=== PATIENT | female | born 1950 | race Two or more races ===

== ENCOUNTER 2022-12-10 12:44 | Outpatient (AMB) | payer OTHER, SELFPAY ==
--- NOTE | 2022-12-10 12:51 | A.OFFVIS_ITS ---
Intake Vital Signs 12/10/22 12:55 Height 5 ft 2 in Weight 196 lb 4 oz BMI 35.9 BP 140/90 H Blood Pressure Location Rt brachial Position Sitting Pulse 80 Pulse Source Pulse Oximeter Pulse Oximetry (%) 99 Oxygen Delivery Method Room Air Intake Visit Reasons: NPV-TREMOR UPPER EXTREMITY - Confirmed Intake Note: Pt presents today for tremors on extremities . Pt states its an ongoing x 8 years c no change , Pt states she sees a corporate operations compliance manager for vein thickening of the heart. Not on any meds . Pt saw Dr Betancur in 2019 Allergies amitriptyline Allergy (Unknown, Verified 12/10/22 12:58) Unknown ciprofloxacin Allergy (Unknown, Verified 12/10/22 12:58) Unknown lisinopril Allergy (Unknown, Verified 12/10/22 12:58) Unknown metoprolol Allergy (Unknown, Verified 12/10/22 12:58) Unknown morphine Allergy (Unknown, Verified 12/10/22 12:58) Unknown pentosan polysulfate sodium [From Elmiron] Allergy (Unknown, Verified 12/10/22 12:58) Unknown promethazine Allergy (Unknown, Verified 12/10/22 12:58) Unknown carbidopa Adverse Reaction (Intermediate, Verified 12/10/22 13:24) Nausea and Vomiting primidone Adverse Reaction (Intermediate, Verified 12/10/22 13:19) Nausea and Vomiting HPI HPI Comments History of Present Illness Details 72y/o female for further management of tremors. She started noticing tremors in her fredi upper extremities about 8 years ago . Her brother( 56), sister ( 59)and 1 grand son( 22) have tremors as well.The tremors are worse on the left. It is mostly with action , posture and sometimes at rest. she denies any voice or head tremors. She has mild difficulty with drinking liquids and writing. Other keith the tremors does not affect her ADLs.she has noticed any progression of her tremors she denies any memory issues.No drooling, no change in speech. she has difficulty dressing due to her arthritis. No difficulty using utensils. she was seen by Dr. Romero who tried on sinemet and primidone . she did not react well so stopped both.she had tachycardia and had to stop. [facility] Medical History (Updated 12/10/22 @ 13:46 by Carmen Hooper MD) Allergic rhinitis Anemia Asthma Benign essential tremor Breast cancer Depression Diverticulitis Esophageal reflux Fibromyalgia Fibromyalgia Hemorrhoids History of benign essential tremor HTN (hypertension) Neuropathy Osteoarthritis Renal colic Sinusitis Venous insufficiency Surgical History H/O lumpectomy Family History Mother Stroke Diabetes CHF (congestive heart failure) HTN (hypertension) Father MVA (motor vehicle accident) Sister Muscle tremor Brother Muscle tremor Social History Alcohol intake: never Patient Tobacco Use Status: Never used Tobacco Review of Systems Const Denies weight gain Musc Denies back pain and Denies arthralgias Neuro Reports tremor(s) Physical Exam Vital Signs: Last Vital Signs Pulse 80 12/10/22 12:55 BP 140/90 H 12/10/22 12:55 Pulse Ox 99 12/10/22 12:55 Oxygen Delivery Method Room Air 12/10/22 12:55 BMI result Body Mass Index 35.9 Const General: cooperative, healthy appearing, comfortable and no acute distress Nutritional Appearance: obese Orientation/consciousness: patient oriented x3 Eyes Pupils: Equal, round and reactive pupils present Neuro Other: Good voice Good facial expression and blink Intermittent left UE rest tremors Fredi UE mild postural and action tremors FFM and foot taps normal No cog wheel rigidity she was able to copy the archimedes spiral -both left and right Handwriting normal General: patient oriented x3, tone normal, moves all extremities and no focal motor deficits Cranial nerves: Yes Equal, round and reactive pupils present, Yes Bilaterally intact EOM present, Yes Normal facial strength present, Yes Midline tongue present, Yes Symmetric palate elevation present and Yes Ability to bilaterally elevate shoulders present Cognition (Neuro): normal cognition Gait exam (Neuro): Antalgic gait present Motor exam (neuro): 5/5 motor strength present throughout and Normal motor muscle tone present throughout Deep tendon reflexes (DTR's): Right triceps reflex intensity grade: 1+, Left triceps reflex intensity grade: 1+, Rt Biceps (C5, C6): 1+, Left biceps reflex intensity grade: 1+, Right brachioradialis reflex intensity grade: 1+, Left brachioradialis reflex intensity grade: 1+, Right patellar reflex intensity grade: 1+ and Left patellar reflex intensity grade: 1+ Coordination: [id number] test normal Psych Appearance: grossly normal Speech and movement: Normal speech and movement present Affect: normal affect Assessment & Plan Assessment & Plan (1) Benign essential tremor: Comment: Likely familial No evidence of Parkinsons disease Code(s): G25.0 - Essential tremor Plan No evidence of parkinsons disease Her tremors does not affect her ADLs significantly I discussed various treatment options ( she did not react well to primidone or sinemet in the past) , she declines medications for now I will follow her up clinically in 6 months Coding Level of Care Code New Pt Level 4 (20142) Diagnoses Benign essential tremor G25.0
[2022-12-10 12:55] VITALS: BP 140/90; PULSE 80; O2SAT 99; BMI 35.9
== END 2022-12-10 13:41 | disposition home or self-care (01) ==
PROVIDERS: Visit Provider Psychiatry & Neurology Neurology
DX: G25.0 Essential tremor (principal)
CPT/HCPCS: 99204

== ENCOUNTER → 2022-12-10 12:44 | Outpatient (BNVA) | payer OTHER, SELFPAY | PROVIDERS: Visit Provider Psychiatry & Neurology Neurology | DX: G25.0 Essential tremor (principal) | CPT/HCPCS: 99202 ==

== ENCOUNTER 2023-07-03 10:21 | Outpatient (AMB) | payer OTHER, SELFPAY ==
--- NOTE | 2023-07-03 10:27 | A.OFFVIS_ITS ---
Intake Vital Signs 07/03/23 10:28 Height 5 ft 2 in Weight 192 lb BMI 35.1 BP 158/90 H Blood Pressure Location Lt brachial Position Sitting Respiration 17 Pulse 86 Pulse Source Pulse Oximeter Pulse Oximetry (%) 95 Oxygen Delivery Method Room Air Intake Visit Reasons: 6MTREMOR UPPER EXTREMITY-CONF Intake Note: Pt presents for a 6 month follow up for tremors. Floor Renovator Required: No Allergies amitriptyline Allergy (Unknown, Verified 07/03/23 10:28) Unknown ciprofloxacin Allergy (Unknown, Verified 07/03/23 10:28) Unknown lisinopril Allergy (Unknown, Verified 07/03/23 10:28) Unknown metoprolol Allergy (Unknown, Verified 07/03/23 10:28) Unknown morphine Allergy (Unknown, Verified 07/03/23 10:28) Unknown pentosan polysulfate sodium [From Elmiron] Allergy (Unknown, Verified 07/03/23 10:28) Unknown promethazine Allergy (Unknown, Verified 07/03/23 10:28) Unknown carbidopa Adverse Reaction (Intermediate, Verified 07/03/23 10:28) Nausea and Vomiting primidone Adverse Reaction (Intermediate, Verified 07/03/23 10:28) Nausea and Vomiting HPI HPI Comments History of Present Illness Details 73y/o female for follow up of tremors.she denies any worsening. She started noticing tremors in her fredi upper extremities about 8 years ago . Her brother( 56), sister ( 59)and 1 grand son( 22) have tremors as well.The tremors are worse on the left. It is mostly with action , posture and sometimes at rest. she denies any voice or head tremors. She has mild difficulty with drinking liquids and writing. Other keith the tremors does not affect her ADLs.she has noticed any progression of her tremors she denies any memory issues.No drooling, no change in speech. she has difficulty dressing due to her arthritis. No difficulty using utensils. she was seen by Dr. Romero who tried on sinemet and primidone . she did not react well so stopped both.she had tachycardia and had to stop. [facility] Medical History Benign essential tremor Depression Fibromyalgia Fibromyalgia Osteoarthritis Anemia Neuropathy Esophageal reflux Venous insufficiency Renal colic Sinusitis HTN (hypertension) History of benign essential tremor Asthma Hemorrhoids Allergic rhinitis Diverticulitis Breast cancer Surgical History H/O lumpectomy Family History Mother Stroke Diabetes CHF (congestive heart failure) HTN (hypertension) Father MVA (motor vehicle accident) Sister Muscle tremor Brother Muscle tremor Social History Alcohol intake: never Patient Tobacco Use Status: Never used Tobacco Physical Exam Vital Signs: Last Vital Signs Pulse 86 07/03/23 10:28 Resp 17 07/03/23 10:28 BP 158/90 H 07/03/23 10:28 Pulse Ox 95 07/03/23 10:28 Oxygen Delivery Method Room Air 07/03/23 10:28 BMI result Body Mass Index 35.1 Const General: cooperative, healthy appearing, comfortable and no acute distress Nutritional Appearance: obese Orientation/consciousness: patient oriented x3 Eyes Pupils: Equal, round and reactive pupils present Neuro Other: Good voice Good facial expression and blink Intermittent left UE rest tremors Fredi UE mild postural and action tremors FFM and foot taps normal No cog wheel rigidity she was able to copy the archimedes spiral -both left and right Handwriting normal General: patient oriented x3, tone normal, moves all extremities and no focal motor deficits Cranial nerves: Yes Equal, round and reactive pupils present, Yes Bilaterally intact EOM present, Yes Normal facial strength present, Yes Midline tongue present, Yes Symmetric palate elevation present and Yes Ability to bilaterally elevate shoulders present Gait exam (Neuro): Antalgic gait present Coordination: [id number] test normal Psych Appearance: grossly normal Speech and movement: Normal speech and movement present Affect: normal affect Assessment & Plan Assessment & Plan (1) Benign essential tremor: Comment: Likely familial No evidence of Parkinsons disease Code(s): G25.0 - Essential tremor Plan No evidence of parkinsons disease Her tremors does not affect her ADLs significantly I discussed various treatment options ( she did not react well to primidone or sinemet in the past) , she declines medications for now I will follow her up clinically in 1 year Coding Level of Care Code Est Pt Level 4 (98391) Diagnoses Benign essential tremor G25.0
[2023-07-03 10:28] VITALS: BP 158/90; PULSE 86; RESP 17; O2SAT 95; BMI 35.1
== END 2023-07-03 10:45 | disposition home or self-care (01) ==
PROVIDERS: PCP Internal Medicine; Visit Provider Psychiatry & Neurology Neurology
DX: G25.0 Essential tremor (principal)
CPT/HCPCS: 99214

== ENCOUNTER → 2023-07-03 10:21 | Outpatient (BNVA) | payer OTHER, SELFPAY | PROVIDERS: PCP Internal Medicine; Visit Provider Psychiatry & Neurology Neurology | DX: G25.0 Essential tremor (principal) | CPT/HCPCS: 99212 ==

== ENCOUNTER 2024-07-01 10:45 | Outpatient (AMB) | payer OTHER, SELFPAY ==
--- NOTE | 2024-07-01 10:47 | MHC.OFFVIS ---
Vital Signs 07/01/24 10:48 Height 5 ft 2 in Weight 191 lb BMI 34.9 BP 140/78 H Blood Pressure Location Rt brachial Position Sitting Pulse 88 Pulse Source Pulse Oximeter Pulse Oximetry (%) 98 Oxygen Delivery Method Room Air Intake Visit Reasons: 1 yr F/U Intake Note: Patient presents for 1 year follow up essential tremors Employment Evaluator/Case Manager Required: Yes Employment Evaluator/Case Manager Services: Employment Evaluator/Case Manager Present Employment Evaluator/Case Manager Name: Yani Oconnell Information Interpreted: non-clinical & clinical Allergies amitriptyline Allergy (Unknown, Verified 07/01/24 10:50) Unknown ciprofloxacin Allergy (Unknown, Verified 07/01/24 10:50) Unknown lisinopril Allergy (Unknown, Verified 07/01/24 10:50) Unknown metoprolol Allergy (Unknown, Verified 07/01/24 10:50) Unknown morphine Allergy (Unknown, Verified 07/01/24 10:50) Unknown pentosan polysulfate sodium [From Elmiron] Allergy (Unknown, Verified 07/01/24 10:50) Unknown promethazine Allergy (Unknown, Verified 07/01/24 10:50) Unknown carbidopa Adverse Reaction (Intermediate, Verified 07/01/24 10:50) Nausea and Vomiting primidone Adverse Reaction (Intermediate, Verified 07/01/24 10:50) Nausea and Vomiting HPI Comments Details: 74y/o female for follow up of tremors.she denies any worsening. No change form last visit . She started noticing tremors in her fredi upper extremities about 8 years ago . Her brother( 56), sister ( 59)and 1 grand son( 22) have tremors as well.The tremors are worse on the left. It is mostly with action , posture and sometimes at rest. she denies any voice or head tremors. She has mild difficulty with drinking liquids and writing. Other keith the tremors does not affect her ADLs.she has noticed any progression of her tremors she denies any memory issues.No drooling, no change in speech. she has difficulty dressing due to her arthritis. No difficulty using utensils. she was seen by Dr. Romero who tried on sinemet and primidone . she did not react well so stopped both.she had tachycardia and had to stop. [facility] Medical History Benign essential tremor Depression Fibromyalgia Fibromyalgia Osteoarthritis Anemia Neuropathy Esophageal reflux Venous insufficiency Renal colic Sinusitis HTN (hypertension) History of benign essential tremor Asthma Hemorrhoids Allergic rhinitis Diverticulitis Breast cancer Surgical History H/O lumpectomy Family History Mother Stroke Diabetes CHF (congestive heart failure) HTN (hypertension) Father MVA (motor vehicle accident) Sister Muscle tremor Brother Muscle tremor Social History Alcohol intake: never Patient Tobacco Use Status: Never used Tobacco Physical Exam Vital Signs: Last Vital Signs Pulse 88 07/01/24 10:48 BP 140/78 H 07/01/24 10:48 Pulse Ox 98 07/01/24 10:48 Oxygen Delivery Method Room Air 07/01/24 10:48 BMI result Body Mass Index 34.9 Const General: cooperative, healthy appearing, comfortable and no acute distress Nutritional Appearance: obese Orientation/consciousness: patient oriented x3 Eyes Pupils: Equal, round and reactive pupils present Neuro Other: Good voice Good facial expression and blink Intermittent left UE rest tremors Fredi UE mild postural and action tremors FFM and foot taps normal No cog wheel rigidity she was able to copy the archimedes spiral -both left and right Handwriting normal General: patient oriented x3, tone normal, moves all extremities and no focal motor deficits Cranial nerves: Yes Equal, round and reactive pupils present, Yes Bilaterally intact EOM present, Yes Normal facial strength present, Yes Midline tongue present, Yes Symmetric palate elevation present and Yes Ability to bilaterally elevate shoulders present Gait exam (Neuro): Antalgic gait present Coordination: [id number] test normal Psych Appearance: grossly normal Speech and movement: Normal speech and movement present Affect: normal affect Assessment & Plan Assessment & Plan (1) Benign essential tremor: Comment: Likely familial No evidence of Parkinsons disease Code(s): G25.0 - Essential tremor Category: Medical Plan No evidence of parkinsons disease Her tremors does not affect her ADLs significantly I discussed various treatment options ( she did not react well to primidone or sinemet in the past) , she declines medications for now I will follow her up clinically in 1 year Coding Level of Care Code Est Pt Level 4 (77968) Diagnoses Benign essential tremor G25.0
[2024-07-01 10:48] VITALS: BP 140/78; PULSE 88; O2SAT 98; BMI 34.9
--- OUTSIDE RECORDS SUMMARY | 2024-07-01 12:46 | XMS_ITS | Encounter Summary ---
Author Organization [facility] Address [id number] [place] [phone] Care Team Providers Care Merchandise Worker Name Role Phone Bell Barone MD Primary Care Provider [phone] Encounter Details Date Type Department Care Team (Late st Contact Info) Description 05/10/2024 Telephone Internal Medicine - [place] [address] [place] [phone] Bell Barone MD [address] [facility] [address] [place] [address] Social History Tobacco Use Types Packs/Day Years Used Date Smoking Tobacco: Never Smokeless Tobacco: Never Alcohol Use Standard Drinks/Week Comments Never 0 (1 standard drink = 0.6 oz pur e alcohol) Comments Unknown Sex and Gender Information Value Date Recorded Sex Assigned at Female 04/07/2024 10:53 AM EST Legal Sex Female 5:08 AM EST Gender Identity Female 04/07/2024 10:53 AM EST Sexual Orientation Straight 04/09/2024 9: 55 AM EST documented as of this encounter Plan of Treatment Upcoming Encounters Date Type Department Care Team (Late st Contact Info) Description 07/27/2024 11:00 AM EDT Ancillary Procedure [facility] [address] [place] [phone] 08/04/2024 10:50 AM EDT Office Visit [facility] - [facility] [place] [address] [place] [address] Marck Cox MD [address] [place] [address] [address] [place] [address] 10/28/2024 11:15 AM EDT Office Visit Internal Medicine - [place] [address] [facility] [address] [facility] [address] [place] [phone] Bell Barone MD [address] [facility] [address] [place] [phone] documented as of this encounter Visit Diagnoses Not on filedocumented in this encounter Care Teams Merchandise Worker Relationship Specialty Start Date End Date Bell Barone MD [address] [facility] [address] [place] [phone] PCP - General Internal Medicine 03/29/24 documented as of this encounter
--- OUTSIDE RECORDS SUMMARY | 2024-07-01 12:47 | XMS_ITS | Encounter Summary ---
Author Organization [facility] Address [address] [place] [phone] Care Team Providers Care Watershed Coordinator Name Role Phone Bell Barone MD Primary Care Provider [phone] Reason for Visit * Reason Onset Date Comments Lizabeth: Faxed form 05/24/2024 Encounter Details Date Type Department Care Team (Late st Contact Info) Description 05/24/2024 Telephone Internal Medicine - [place] [address] [address] [facility] [address] [place] [phone] Bell Barone MD [address] [place] [phone] [place]: Faxed form Social History Tobacco Use Types Packs/Day Years [...] AM EST documented as of this encounter Progress Notes * Eusebia Danielle [place] - 06/02/2024 1:15 PM EST Order was received, signed and faxed. Patient is all set. * Christine Gatica - 05/28/2024 3:46 PM EST [facility] called again about message below and would like to know the status of thisform. Please advise * Christine Gavi - 05/24/2024 12:56 PM EST [facility] called and stated that they sent over a prescription over for post surgeryblock that needs be signed by the provider and was sent on 05/07/24 and 05/14/24 and still have not received a response. Please advise Cb# [phone] documented in this encounter Plan of Treatment Upcoming Encounters Date Type Department Care Team (Late st Contact Info) Description 07/27/2024 11:00 AM EDT Ancillary Procedure [facility] [address] [facility] [address] [place] [phone] 08/04/2024 10:50 AM EDT Office Visit [facility] [address] [place] [address] [address] [place] [address] Marck Cox MD [address] [place] [address] [address] [place] [address] 10/28/2024 11:15 AM EDT Office Visit Internal Medicine - [place] [address] [place] [phone] Bell Barone MD [address] [facility] [address] [place] [phone] documented as of this encounter Visit Diagnoses Not on filedocumented in this encounter Care Teams Watershed Coordinator Relationship Specialty Start Date End Date Bell Barone MD [address] [facility] [address] [place] [phone] PCP - General Internal Medicine 03/29/24 documented as of this encounter
--- OUTSIDE RECORDS SUMMARY | 2024-07-01 12:47 | XMS_ITS | Clinical Summary ---
Author Organization [facility] Address [address] [place] [address] Phone Care Team Providers Care Oil Burner Repairer Name Role Phone Bell Barone MD Primary Care Provider [phone] Allergies Active Allergy Reactions Criticality Noted Date Comments Amitriptyline 08/25/2014 Amoxicillin-Pot Clavulanate 03/05/20 23 Azithromycin 08/25/2023 Chlorhexidin-Isopropyl Alcohol 08/24 Ciprofloxacin 11/23/2010 Lisinopril 11/23/2010 Metoprolol 02/10/2015 Mirabegron 08/25/2023 Morphine 11/23/2010 Other 09/18/2020 Seasonal allergies Amoxicillin-k Clavulanate-saccharin Pentosan Polysulfate Sodium 02/11/20 15 Phenazopyridine 08/25/2023 Promethazine 11/23/2010 Simethicone 08/25/2023 Sulfamethoxazole-Trimethoprim 2023 Medications UNABLE TO FIND Misc. Devices (Rollator Ultra-Light) Misc, 1 Each by Does not apply route daily. 03/03/20 24 Active carboxymethylc ellulose (REFRESH PLUS) 0.5 % ophthalmic solution 1 drop each eye twice a day 12/31/19 24 Active triamcinolone (KENALOG) 0.1 % cream APPLY TO AFFECTED AREA TWICE DAILY 02/12/20 24 Active lidocaine 5 % cream Apply 1 Inch topically 2 times daily. 12/29/19 24 Active simethicone (MYLICON) 125 mg chewable tablet Take 1 Tablet by mouth every 6 hours as needed for Flatulence. 08/28/19 24 Active hydrocortisone (ANUSOL-HC) 2.5 % rectal cream Apply 1 Dose topically 2 times daily. 07/07/19 24 Active loratadine (CLARITIN) 10 mg tablet Take 1 Tablet by mouth daily as needed for Allergies. 09/21/19 23 Active albuterol HFA (PROAIR HFA ; PROVENTIL HFA ; VENTOLIN HFA) 90 mcg/actuation inhaler INHALE 2 PUFFS INTO THE LUNGS EVERY 6 HOURS NEEDED FOR COUGH OR WHEEZING. 09/13/19 23 Active calcium carbonate-kelly min D3 600 mg-5 mcg (200 unit) per tablet Take 1 Cap by mouth daily. Active UNABLE TO FIND Spacer/Aero-H olding Chambers (PROCARE SPACER/ADULT MASK) Device 10/27/19 20 Active UNABLE TO FIND Misc. Devices (3-IN-1 BEDSIDE TOILET) Misc, 1 Each by Does not apply route daily. 04/14/20 18 Active benzonatate (TESSALON) 200 mg capsule Take 1 capsule (200 mg total) by mouth 3 (three) times a day if needed for cough. Do not crush or chew. 21 capsule 06/15/19 25 Active ergocalciferol (VITAMIN D-2) 1,250 mcg (50,000 unit) capsule TAKE 1 CAPSULE BY MOUTH ONCE A WEEK. 4 capsule 3 06/16/19 25 Active ergocalciferol (VITAMIN D-2) 1,250 mcg (50,000 unit) capsule TAKE 1 CAPSULE BY MOUTH ONCE A WEEK. 11/18/19 24 025 Discontinued(Re order) dextromethorph an-guaiFENesin (Tussin DM) 10-100 mg/5 mL liquidIndicati ons:Acute cough Take 5 mL by mouth every 4 (four) hours if needed for cough. 420 mL 2 05/12/19 25 025 Discontinued(Ex pired) ergocalciferol (VITAMIN D-2) 1,250 mcg (50,000 unit) capsule Take 1 capsule (50,000 Units total) by mouth 1 (one) time per week. 12 capsule 1 06/15/19 25 025 Discontinued Active Problems Problem Noted Date Diagnosed Date Parkinson's disease 06/15/2024 Assessment & Plan (06/15/2024 11:54 AM EST): Abdominal pain 03/09/2024 AV block 09/25/2023 Overview (03/09/2024): Last Assessment & Plan: The patient was found to have episodes of type I second-degree AV block on a recent Holter monitor. She also had a 3-second pause at 4 AM. The pause was likely secondary to increased vagal tone during sleep. Follow-up 8-day ambulatory automotive paint technician also showed a few episodes of type I secondary AV block. There was no evidence of any significant pauses during the ambulatory automotive paint technician. No evidence of any high- grade AV block or pauses longer than 3 seconds in any of her EKG monitors. The patient denies any symptoms of dizziness, presyncope, or syncope. As such, no indication for pacemaker placement at this point. The patient will contact our office if she has any symptoms of dizziness, near-syncope, or syncope. Aneurysm of ascending aorta 04/14/2023 Overview (03/09/2024): Last Assessment & Plan: The patient underwent an echocardiogram in June 2023. She was found to have a mild dilation of the ascending aorta at 3.9 cm. The patient will need a follow- up echocardiogram in 1 year for reevaluation of her ascending aorta diameter. I discussed this with the patient during today's visit. Assessment & Plan (04/13/2024 4:56 PM EST): The patient was noted to have a mild ascending aorta dilation on the echocardiogram done in 2023 and 2021. Will order a follow-up echocardiogram to be done in early 2024 for reevaluation of her mild ascending aorta dilation. Palpitation 04/09/2023 Overview (03/09/2024): Last Assessment & Plan: The patient has been experiencing episodes of palpitations. We will order a Holter monitor to evaluate for any underlying arrhythmias as a cause of her symptoms. We will also order an echocardiogram to rule out any significant structural heart disease. Assessment & Plan (04/13/2024 4:56 PM EST): The patient has been noticing symptoms of palpitations. Her episodes of palpitations are last for a few seconds per episode. She also has been noticing symptoms of a mild lightheadedness sensation. She denies any near-syncope or syncope. Previous Holter monitor from May 2023 showed a normal sinus rhythm with for severe AV block, right bundle branch block, occasional episodes of type I secondary AV block, and a 3-second pause during the sleep time hours. After that, a prolonged ambulatory automotive paint technician was prescribed but the patient was unable to wear the monitor for 8 days. During those 8 days, there was no evidence of any significant pauses or significant bradycardia. Nonetheless, given her current symptoms of palpitations and occasional symptoms of lightheadedness, we will proceed with a reevaluation with a 48-hour Holter monitor. Will also order laboratory testing that would include a CBC, CMP, and a TSH level. Tremor 08/26/2022 Allergic rhinitis 01/28/2018 Hemorrhoids 12/26/2017 Asthma 08/11/2017 Assessment & Plan (06/15/2024 11:54 AM EST): Benign familial tremor 08/08/2017 Chronic sinusitis 02/21/2017 Renal colic 02/21/2017 Venous insufficiency 02/21/2017 Esophageal reflux 11/13/2016 Neuropathic pain 08/23/2016 Vitamin D deficiency 02/05/2016 Anemia 10/18/2015 Migraine headache 10/18/2015 Assessment & Plan (06/15/2024 11:54 AM EST): OA (osteoarthritis of spine) 10/18/2015 Osteoarthritis of knee 09/04/2015 Fibromyalgia 11/01/2014 Decreased vision 09/08/2014 Depression 09/08/2014 Assessment & Plan (06/15/2024 11:54 AM EST): Overactive bladder 09/08/2014 Encounters Date Type Department Care Team Description 06/15/2024 8:45 AM EST Office Visit Internal Medicine - [address] [place] [address] Bell Barone MD Migraine without status migrainosus, not intractable, unspecified migraine type (Primary Dx); Encounter for subsequent annual wellness visit (AWV) in Medicare patient; Parkinson's disease, unspecified whether dyskinesia present, unspecified whether manifestations fluctuate (CMS/HCC); Mild intermittent asthma without complication; Depression, unspecified depression type 05/24/2024 Telephone Internal Medicine - [address] [facility] [address] [place] [address] Bell Barone MD [place]: Faxed form 05/12/2024 2:15 PM EST Office Visit Internal Medicine - [address] [address] [facility] [address] [place] [address] Juanpablo Bennett NP Chronic maxillary sinusitis (Primary Dx); Acute cough; Immunization due 05/10/2024 Telephone Internal Medicine - [place] [address] [facility] [address] [place] [address] Bell Barone MD 04/21/2024 Telephone [facility] [address] [place] [address] Toribio Carlos MD holter monitor results 04/13/2024 4:00 PM EST Office Visit [address] [place] [address] Toribio Carlos MD Ascending aortic aneurysm, unspecified whether ruptured (CMS/HCC) (Primary Dx); Palpitation 04/13/2024 2:30 PM EST Ancillary Procedure [facility] [address] [place] [phone] Palpitation 04/07/2024 10:54 AM EST - 04/07/2024 11:59 PM EST Hospital Encounter [facility] [address] [place] [phone] of the abdomen Discharge Disposition: Home or Self Care from Last 3 Months Immunizations Name Administration Dates Next Due Influenza trivalent, 0.5mL (Fluad) 65yo and olde r 01/14/2019 Pneumococcal conjugate 13 va lent (Prevnar 13, PCV13) 2mo and older 05/07/2016,03/13/2015 Pneumococcal conjugate 20 va lent (Prevnar 20, PCV 20) 2mo and older 05/12/2024 Surgical History Surgery Date Site/Laterality Comments BREAST LUMPECTOMY Right PROCEDURE: HISTORICAL BREAST LUMPECTOMY Medical History Medical History Date Comments Allergic rhinitis 01/28/2018 DX:Allergic rh initis Anemia 10/18/2015 DX:Anemia Asthma 08/11/2017 DX:Asthma Benign familial tremor 08/08/2017 DX:Benign familial tremor Chronic sinusitis 02/21/2017 DX:Chronic sin usitis Decreased vision 09/08/2014 DX:Decreased vi radha Depression 09/08/2014 DX:Depression Edema 11/27/2016 DX:Edema Esophageal reflux 11/13/2016 DX:Esophageal reflux Fibromyalgia 11/01/2014 DX:Fibromyalgia Hemorrhoids 12/26/2017 DX:Hemorrhoids History of breast cancer 03/03/2018 DX:Hist ory of breast cancer; COMMENT: Right lumpectomy, XRT, Tamoxifen/Arimidex for 5 yrs History of diverticulitis 03/03/2018 DX:His tory of diverticulitis HTN (hypertension) 05/28/2017 DX:HTN (hyper tension) Leg edema 11/13/2016 DX:Leg edema Migraine headache 10/18/2015 DX:Migraine he adache Neuropathic pain 08/23/2016 DX:Neuropathic pain OA (osteoarthritis of spine) 10/18/2015 DX: OA (osteoarthritis of spine) Osteoarthritis of knee 09/04/2015 DX:Osteoa rthritis of knee Overactive bladder 09/08/2014 DX:Overactive bladder Renal colic 02/21/2017 DX:Renal colic Venous insufficiency 02/21/2017 DX:Venous i nsufficiency Vitamin D deficiency 02/05/2016 DX:Vitamin D deficiency Abdominal pain DX:Abdominal graciela n Family History Medical History Relation Name Comments Breast cancer Aunt maternal Other: muscle tremor Brother Other: MVA accident Father Breast cancer Father's side 1st cousin Stroke Mother multiple CVA's and [place]; HTN; diabetes; CHF Other: muscle tremor Sister Relation Name Status Comments Aunt maternal Brother Alive Father Father's side 1st cousin Alive Maternal Grandfather Maternal Grandmother Mother Paternal Grandfather Paternal Grandmother Sister Alive Social History Tobacco Use Types Packs/Day Years [...] Orientation Straight 04/09/2024 9: 55 AM EST Obstetrics History Last Filed Vital Signs Vital Sign Reading Time Taken Comments Blood Pressure 138/86 06/15/2024 9:00 AM EST Pulse 88 06/15/2024 9:00 AM EST Temperature 36.7 ??C (98 ??F) 06/15/2024 9:00 AM EST Respiratory Rate - - Oxygen Saturation 99% 06/15/2024 9:00 AM EST Inhaled Oxygen Concentration - - Weight 83.5 kg (184 lb) 06/15/2024 9:00 AM EST Height 157.5 cm (5' 2 ) 05/12/2024 2:16 PM EST Body Mass Index 33.65 05/12/2024 2:16 PM EST Plan of Treatment Upcoming Encounters Date Type Department Care Team (Late st Contact Info) Description 07/27/2024 11:00 AM EDT Ancillary Procedure [facility] [address] [place] [phone] 08/04/2024 10:50 AM EDT Office Visit [facility] [address] [place] [address] Toribio Carlos MD [address] [place] [address] [address] [place] [address] 10/28/2024 11:15 AM EDT Office Visit Internal Medicine - [place] [address] [place] [phone] Bell Barone MD [address] [place] [phone] Health Maintenance Due Date Last Done Comments DTaP,Tdap,and Td Vaccines (1 - Tdap) 1970 Zoster Vaccines (1 of 2) 1970 RSV Immunization Patients 60+ Years Old (1 - Risk 60-74 years 1-dose series) 2011 Colorectal Cancer Screening: Colonoscopy 04/13/2022 Hepatitis C Screening 04/13/2022 Osteoporosis Screening (Bone Density Screening) 04/13/2022 Social Influencers of Health Screening 04/13/2022 COVID-19 Vaccine ( season) 2024 05/16/2021, 07/01/2020, 06/10/2020 Influenza Vaccine (#1) 2024 , 02/04/2022, 01/14/2019, Additional history exists Hypertension/CHF/CAD Annual BMP Blood Test 04/16/2025 04/16/2024, 12/29/2023, 12/29/2023 Depression Screening 06/15/2025 06/15/2024 Falls Risk Assessment 06/15/2025 06/15/2024 Medicare Annual Wellness Visit 06/15/2025 06/15/2024 Breast Cancer Screening 11/30/2025 12/01/19 24, 10/23/2022, 10/17/2021, Additional history exists Cholesterol Screening (Lipid Panel) 12/28/2028 12/29/2023, 12/29/2023 Pneumococcal Vaccine: 50+ Years Completed 05/12/2024, 05/07/2016, 03/13/2015, Additional history exists HIB Vaccines Aged Out No longer eligi ble based on patient's age to complete this topic HPV Vaccines Aged Out No longer eligi ble based on patient's age to complete this topic Hepatitis A Vaccines Aged Out No long er eligible based on patient's age to complete this topic Hepatitis B Vaccines Aged Out No long er eligible based on patient's age to complete this topic IPV Vaccines Aged Out No longer eligi ble based on patient's age to complete this topic MMR Vaccines Aged Out No longer eligi ble based on patient's age to complete this topic Meningococcal ACWY Vaccine Aged Out N o longer eligible based on patient's age to complete this topic Meningococcal B Vacine Aged Out No lo nger eligible based on patient's age to complete this topic RSV Immunization Patients Under 20 months Aged Out No longer eligible based on patient's age to complete this topic Varicella Vaccines Aged Out No longer eligible based on patient's age to complete this topic Procedures Procedure Name Priority Date/Time Associated Diagnosis Comments POC RAPID STREP A Routine 05/12/2024 3:3 8 PM EST Chronic maxillary sinusitis Acute cough POC INFLUENZA A/B Routine 05/12/2024 3:3 7 PM EST Chronic maxillary sinusitis Acute cough POC RAPID [id number], MOLECULAR Routine 05/12/2024 3:36 PM EST Chronic maxillary sinusitis Acute cough CBC WITH AUTO DIFFERENTIAL Routine 04/16/2024 11:10 AM EST Palpitation CBC AND DIFFERENTIAL Routine 04/16/2024 11:10 AM EST Palpitation COMPREHENSIVE METABOLIC PANEL Routine 04/16/2024 11:10 AM EST Palpitation THYROID STIMULATING HORMONE Routine 04/16/2024 11:10 AM EST Palpitation CARDIAC HOLTER MONITOR (REPORT GENERATED IN HOUSE) Routine 04/14/2024 1:44 PM EST Palpitation ECG 12-LEAD Routine 04/13/2024 4:11 PM EST Ascending aortic aneurysm, unspecified whether ruptured (CMS/HCC) Palpitation XR CHEST 2 VIEWS Routine 04/07/2024 11:[address] of the abdomen LIPID PANEL Routine 12/29/2023 TOM SCREENING DIGITAL Routine 12/01/2023 1:49 PM EDT Encounter for screening mammogram for malignant neoplasm of breast from Last 3 Months or Most Recently Relevant to Health Maintenance Results * POC rapid strep A manually resulted (05/12/2024 3:38 PM EST) Rapid Strep A Screen POC Negative Negative Internal Control Pass Yes Yes Swab Structure of anterior portion of neck / Unknown 05/12/2024 3:38 PM EST Juanpablo Bennett COMMERCIAL COORDINATOR POINT OF CARE TEST ENTER/EDIT OR DERABLES Final Result * POC Influenza A/B manually resulted (05/12/2024 3:37 PM EST) [facility] Rapid Influenza A AGN POC Negative Negative Rapid Influenza B AGN POC Negative Negative Internal Control Pass Yes Yes Swab 05/12/2024 3:37 PM EST Juanpablo Bennett COMMERCIAL COORDINATOR POINT OF CARE TEST ENTER/EDIT OR DERABLES Final Result * Poc Rapid [id number], MOLECULAR (05/12/2024 3:36 PM EST) [facility] COVID-19/SARS- COV-2 Rapid POC Negative Negative [facility]) Internal Control Pass Yes Yes [facility]) Swab Nasopharyngeal structure / Unknown 05/12/2024 3:36 PM EST Juanpablo Bennett COMMERCIAL COORDINATOR POINT OF CARE TEST ENTER/EDIT OR DERABLES Final Result Performing Organization Address City/State/[facility] Co de Phone Number [facility] * (ABNORMAL) CBC auto differential (04/16/2024 11:10 AM EST) [facility] WBC 5.9 4.8 - 10.8 K/mcL LAB HEMETOLOGY METHOD 04/16/2024 2:03 PM [facility] RBC 4.50 3.80 - 4.80 M/mcL LAB HEMETOLOGY METHOD 04/16/2024 2:03 PM [facility] Hemoglobin 12.4 11.5 - 16.0 g/dL LAB HEMETOLOGY METHOD 04/16/2024 2:03 PM [facility] Hematocrit 39.7 35.0 - 47.0 % LAB HEMETOLOGY METHOD 04/16/2024 2:03 PM [facility] MCV 87.6 79.0 - 98.0 FL LAB HEMETOLOGY METHOD 04/16/2024 2:03 PM [facility] MCH 27.4 27.0 - 32.0 pcg LAB HEMETOLOGY METHOD 04/16/2024 2:03 PM [facility] MCHC 31.2(L) 32.0 - 37.0 g/dL LAB HEMETOLOGY METHOD 04/16/2024 2:03 PM [facility] RDW 14.1 11.0 - 15.0 % LAB HEMETOLOGY METHOD 04/16/2024 2:03 PM [facility] Platelets 247 130 - 400 K/mcL LAB HEMETOLOGY METHOD 04/16/2024 2:03 PM [facility] MPV 11.4(H) 7.0 - 11.0 FL LAB HEMETOLOGY METHOD 04/16/2024 2:03 PM [facility] NRBC 0.0 <1.0 % LAB HEMETOLOGY METHOD 04/16/2024 2:03 PM [facility] NRBC Absolute 0.00 <0.10 K/mcL LAB HEMETOLOGY METHOD 04/16/2024 2:03 PM [facility] Neutrophils Relative 62.1 % LAB HEMETOLOGY METHOD 04/16/2024 2:03 PM [facility] Lymphocytes Relative 25.3 % LAB HEMETOLOGY METHOD 04/16/2024 2:03 PM [facility] Monocytes Relative 8.1 % LAB HEMETOLOGY METHOD 04/16/2024 2:03 PM [facility] Eosinophils Relative 3.2 % LAB HEMETOLOGY METHOD 04/16/2024 2:03 PM [facility] Basophils Relative 1.0 % LAB HEMETOLOGY METHOD 04/16/2024 2:03 PM [facility] Immature Granulocytes Relative 0.3 % LAB HEMETOLOGY METHOD 04/16/2024 2:03 PM EST [facility] Neutrophils Absolute 3.65 1.50 - 7.00 K/mcL LAB HEMETOLOGY METHOD 04/16/2024 2:03 PM EST [facility] Lymphocytes Absolute 1.49 1.00 - 5.00 K/mcL LAB HEMETOLOGY METHOD 04/16/2024 2:03 PM EST [facility] Monocytes Absolute 0.48 0.20 - 1.00 K/mcL LAB HEMETOLOGY METHOD 04/16/2024 2:03 PM EST [facility] Eosinophils Absolute 0.19 0.00 - 0.50 K/mcL LAB HEMETOLOGY METHOD 04/16/2024 2:03 PM EST [facility] Basophils Absolute 0.06 0.00 - 0.20 K/mcL LAB HEMETOLOGY METHOD 04/16/2024 2:03 PM [facility] Immature Granulocytes Absolute 0.02 0.00 - 0.03 K/mcL LAB HEMETOLOGY METHOD 04/16/2024 2:03 PM EST [facility] Blood Venous blood specimen / Unknown Venipuncture / Unknown 04/16/2024 11:10 AM EST 04/16/2024 11:10 AM EST Toribio Carlos MD LAB BLOOD ORDERABLES F inal Result [facility] [address] [place] [address], * Thyroid stimulating hormone (04/16/2024 11:10 AM EST) TSH 2.52 0.40 - 4.00 mcIU/mL LAB CHEMISTRY METHOD 04/16/2024 2:03 PM EST [facility] Blood Venous blood specimen / Unknown Venipuncture / Unknown 04/16/2024 11:10 AM EST 04/16/2024 11:10 AM EST us Toribio Carlos MD LAB BLOOD ORDERABLES F inal Result [facility] [address] [place] [address], [place] [phone] * (ABNORMAL) Comprehensive metabolic panel (04/16/2024 11:10 AM EST) Sodium 142 133 - 145 mmol/L LAB CHEMISTRY METHOD 04/16/2024 2:42 PM [facility] Potassium 3.8 3.5 - 5.5 mmol/L LAB CHEMISTRY METHOD 04/16/2024 2:42 PM [facility] Chloride 109 96 - 110 mmol/L LAB CHEMISTRY METHOD 04/16/2024 2:42 PM [facility] CO2 26 21 - 32 mmol/L LAB CHEMISTRY METHOD 04/16/2024 2:42 PM [facility] Anion Gap 7 3 - 11 LAB CHEMISTRY METHOD 04/16/2024 2:42 PM [facility] Glucose 107(H) 70 - 100 mg/dL LAB CHEMISTRY METHOD 04/16/2024 2:42 PM [facility] BUN 20 5 - 25 mg/dL LAB CHEMISTRY METHOD 04/16/2024 2:42 PM [facility] Creatinine 0.89 0.50 - 1.10 mg/dL LAB CHEMISTRY METHOD 04/16/2024 2:42 PM [facility] eGFR 69 >=60 mL/min/1. 73m2 LAB CHEMISTRY METHOD 04/16/2024 2:42 PM [facility] Comment:Calculation based on the??Chronic Kidney Disease Epidemiology Collaboration (CKD-EPI) equation refit??without adjustment for race. BUN/Creatinine Ratio 22.5 LAB CHEMISTRY METHOD 04/16/2024 2:42 PM [facility] Calcium 9.5 8.5 - 10.5 mg/dL LAB CHEMISTRY METHOD 04/16/2024 2:42 PM [facility] AST (SGOT) 19 10 - 42 unit/L LAB CHEMISTRY METHOD 04/16/2024 2:42 PM [facility] ALT (SGPT) 20 10 - 60 unit/L LAB CHEMISTRY METHOD 04/16/2024 2:42 PM [facility] Alkaline Phosphatase 68 42 - 121 unit/L LAB CHEMISTRY METHOD 04/16/2024 2:42 PM [facility] Total Protein 7.8 6.0 - 8.0 g/dL LAB CHEMISTRY METHOD 04/16/2024 2:42 PM [facility] Albumin 4.2 3.2 - 5.0 g/dL LAB CHEMISTRY METHOD 04/16/2024 2:42 PM [facility] Total Bilirubin 0.3 0.0 - 1.4 mg/dL LAB CHEMISTRY METHOD 04/16/2024 2:42 PM EST [facility] Blood Venous blood specimen / Unknown Venipuncture / Unknown 04/16/2024 11:10 AM EST 04/16/2024 11:10 AM EST Toribio Carlos MD LAB BLOOD ORDERABLES F inal Result [facility] [address] [place] [address], * CARDIAC HOLTER MONITOR (REPORT GENERATED IN HOUSE) (04/14/2024 1:44 PM EST) Anatomical Region Laterality Modality Cardiac Diagnost ic Narrative 04/21/2024 9:16 AM EST [facility] [address] [address] TEL: FAX: Type of Test: 48 Hour Holter Monitor Date of Test: 04/13/2024 Ordering Provider: Toribio Roman MD Reason for Test: Palpitations Findings: ?? Scan obscured by baseline artifact 1: Normal Sinus Rhythm with First Degree AV Block and RBBB. ??Occasional episodes of type I second-degree AV block were noted during the sleep time hours. 2: Average heart rate was 81 bpm. ??Heart rate range 46-138 bpm. 3. ??Rare PACs. 4. ??Occasional PVCs and aberrant beats. Rare ventricular couplets and bigeminy. 5. ??No significant pause noted, longest R-R was 2.1 seconds at 6:45 AM. 6. ??Diary returned with no symptoms noted. Toribio Carlos MD CV CARDIAC SERVICES AL OCEDURES Final Result * ECG 12 lead (04/13/2024 4:11 PM EST) Ventricular Rate ECG 95 BPM GEMUSE Atrial Rate 97 BPM GEMUSE P-R Interval 290 ms GEMUSE QRS Duration 134 ms GEMUSE Q-T Interval 342 ms GEMUSE QTc 430 ms GEMUSE R [place] -15 degrees GEMUSE T [place] 3 degrees GEMUSE ECG Interpretation Normal sinus rhythm with 1st degree A-V block Right bundle branch block Abnormal ECG When compared with ECG of 16-JUL-2022 01:02, No significant change was found Confirmed by TORIBIO CARLOS ([id number]) on 04/13/2024 4:34:00 PM GEMUSE 04/13/2024 4:11 PM EST 04/13/2024 4:34 PM EST Toribio Carlos MD ECG ORDERABLES Final Result GEMUSE * XR Chest 2 Views (04/07/2024 11:17 AM EST) Anatomical Region Laterality Modality Body Radiographic Divya ging 04/07/2024 1:12 PM EST Impressions 04/07/2024 1:16 PM EST Impression: 1. Poor inspiration. 2. No focal airspace consolidations are identified. 3. Stable cardiomegaly. -------- FINAL REPORT -------- Dictated By: Gabbi Arroyo Dictated Date: 04/07/2024 13:12 ET Assigned Physician: Gabbi Arroyo Reviewed and Electronically Signed By: Gabbi Arroyo Signed Date: 04/07/2024 13:16 ET Workstation ID: [id number] Transcribed By: Self Edit Transcribed Date: 04/07/2024 13:12 ET Narrative 04/07/2024 1:16 PM EST History: Small airspace infiltrate at the medial right lung base noted on abdominal CT performed at [facility], [place], [place] on 01/18/24. Comparison: Two-view chest 03/06/18 Findings: PA and lateral views. This is a suboptimal inspiration. There are hypoventilatory changes in both lower lungs. No airspace consolidations are identified. The pulmonary vascularity is within normal limits. Hilar contours are stable. The costophrenic angles are sharp. The cardiac silhouette remains mildly enlarged. Right axillary surgical clips are again seen an S-shaped thoracolumbar scoliosis is partially imaged. Procedure Note Gabbi Arroyo MD - 04/07/2024 History: Small airspace infiltrate at the medial right lung base noted onabdominal CT [facility], [place] on 01/18/24. Comparison: Two-view chest 03/06/18 Findings: PA and lateral views. This is a suboptimal inspiration. There arehypoventilatory changes in both lower lungs. No airspace consolidationsare identified. The pulmonary vascularity is within normal limits. Hilarcontours are stable. The costophrenic angles are sharp. The cardiac silhouette remains mildly enlarged. Right axillary surgical clips are again seen an S-shaped thoracolumbarscoliosis is partially imaged. IMPRESSION: Impression: 1. Poor inspiration. 2. No focal airspace consolidations are identified. 3. Stable cardiomegaly. -------- FINAL REPORT -------- Dictated By: Gabbi Arroyo Dictated Date: 04/07/2024 13:12 ET Assigned Physician: Gabbi Arroyo Reviewed and Electronically Signed By: Gabbi Arroyo Signed Date: 04/07/2024 13:16 ET Workstation ID: [id number] Transcribed By: Self Edit Transcribed Date: 04/07/2024 13:12 ET Bell Barone MD IMG XR PROCEDURES Final Result * (ABNORMAL) Lipid panel (12/29/2023) LDL/HDL Ratio 4 0 - 4 Triglycerides 125 0 - 150 mg/dL Cholesterol 204(A) 0 - 200 mg/dL HDL 57 >=40 mg/dL LDL Cholesterol 122(A) 0 - 100 mg/dL Blood Venous blood specimen / Unknown us Historical Provider LAB BLOOD ORDERABLES Melanie l Result * TOM SCREENING DIGITAL (12/01/2023 1:49 PM EDT) Anatomical Region Laterality Modality Mammography 12/01/2023 10:4 7 AM EDT Narrative 12/01/2023 1:49 PM EDT [facility] Diagnostic Imaging Department [address] [place], [place] [id number] Patient: ??REECE NGUYEN ?/Age/Sex: 1950 - 73 - F Unit#: ??[id number] ? Location/Status: ??SPDIMAM/REG CLI ? Mnemonic/Ordering Site: ??DIGSC/SPMAM Ordering Physician: ??BELL BARONE MD [facility] Screening Digital - 12/01/23 - 1109 Report Status:Signed EXAM: [facility] Screening Digital EXAM DATE AND TIME: 12/01/2023 11:10 AM HISTORY: ??Screening. Personal history of right breast carcinoma treated with lumpectomy in 2000 followed by radiation treatment. COMPARISON: ??10/21/22, 10/17/21, 10/05/20 TECHNIQUE: Bilateral digital breast tomosynthesis was performed in the CC and MLO projections. Computer aided detection with bLife 3D 3.1 was employed. TISSUE DENSITY: b. There are scattered areas of fibroglandular density. FINDINGS: Asymmetry and architectural distortion are again seen in the anterior right breast, with thickening and retraction of the overlying skin, consistent with the lumpectomy scar. There has been no significant change. Right axillary surgical clips are again noted. No suspicious masses, grouped microcalcifications, or developing architectural distortion are seen. Vascular calcification is present. IMPRESSION: Stable mammographic appearance of the breasts, including lumpectomy changes in the right breast. ??No evidence of malignancy is seen. A negative mammogram in the presence of a clinically suspicious palpable abnormality does not preclude the possibility of malignancy or alter the indications for biopsy. BI-RADS: ??Category 2: Benign RECOMMENDATION(S): 1: Routine screening mammogram BILATERAL in 1 year. Dictating Physician: ??GABBI ARROYO MD Electronically Signed by: ??GABBI ARROYO MD Dic Date/Time: ??12/01/23 1347 Sign date/Time: ??12/01/23 1349 Procedure Note Gabbi Arroyo MD - 02/18/2024 [facility] Diagnostic Imaging Department [address] [place] [id number] Patient: REECE NGUYEN /Age/Sex: 1950 73 - F Unit#: [id number] Location/Status: SPDIMAM/REG CLI Mnemonic/Ordering Site: [facility] Ordering Physician: BELL BARONE MD [facility] Screening Digital - 12/01/23 - 1109 Report Status:Signed EXAM: [facility] Screening Digital EXAM DATE AND TIME: 12/01/2023 11:10 AM HISTORY: Screening. Personal history of right breast carcinoma treatedwith lumpectomy in 2000 followed by radiation treatment. COMPARISON: 10/21/22, 10/17/21, 10/05/20 TECHNIQUE: Bilateral digital breast tomosynthesis was performed in the CCand MLO projections. Computer aided detection with bLife 3D 3.1was employed. TISSUE DENSITY: b. There are scattered areas of fibroglandular density. FINDINGS: Asymmetry and architectural distortion are again seen in the anteriorright breast, with thickening and retraction of the overlying skin, consistentwith the lumpectomy scar. There has been no significant change. Rightaxillary surgical clips are again noted. No suspicious masses, grouped microcalcifications, or developingarchitectural distortion are seen. Vascular calcification is present. IMPRESSION: Stable mammographic appearance of the breasts, including lumpectomychanges in the right breast. No evidence of malignancy is seen. A negative mammogram in the presence of a clinically suspicious palpable abnormality does not preclude the possibility of malignancy or alter the indications for biopsy. BI-RADS: Category 2: Benign RECOMMENDATION(S): 1: Routine screening mammogram BILATERAL in 1 year. Dictating Physician: GABBI ARROYO MD Electronically Signed by: GABBI ARROYO MD Dic Date/Time: 12/01/23 1347 Sign date/Time: 12/01/23 1349 Bell Barone MD IMG BI PROCEDURES Final Result from Last 3 Months or Most Recently Relevant to Health Maintenance Insurance Care Teams [employer] Relationship Specialty Start Date End Date Bell Barone MD [address] [facility] [address] [place] [id number] PCP - General Internal Medicine 03/29/24
--- OUTSIDE RECORDS SUMMARY | 2024-07-01 12:47 | XMS_ITS | Encounter Summary ---
Author Organization [facility] Address [address] [place] [address] Care Team Providers Care Director Personal Name Role Phone Bell Barone MD Primary Care Provider [phone] Reason for Visit * Reason Comments Annual Exam Encounter Details Date Type Department Care Team (Latest Contact Info) Description 06/15/2024 8:45 AM EST Office Visit Internal Medicine - [place] [address] [place] [phone] Bell Barone MD [address] [place] [phone] Migraine without status migrainosus, not intractable, unspecified migraine type (Primary Dx); Encounter for subsequent annual wellness visit (AWV) in Medicare patient; Parkinson's disease, unspecified whether dyskinesia present, unspecified whether manifestations fluctuate (CMS/HCC); Mild intermittent asthma without complication; Depression, unspecified depression type Social History Tobacco Use Types Packs/Day Years [...] AM EST documented as of this encounter Last Filed Vital Signs Vital Sign Reading Time Taken Comments Blood Pressure 138/86 06/15/2024 9:00 AM EST Pulse 88 06/15/2024 9:00 AM EST Temperature 36.7 ??C (98 ??F) 06/15/2024 9:00 AM EST Respiratory Rate - - Oxygen Saturation 99% 06/15/2024 9:00 AM EST Inhaled Oxygen Concentration - - Weight 83.5 kg (184 lb) 06/15/2024 9:00 AM EST Height - - Body Mass Index 33.65 05/12/2024 2:16 PM EST documented in this encounter Ordered Prescriptions Prescription Sig Dispense Quantity Refills Last Filled Start Date End Date benzonatate (TESSALON) 200 mg capsule Take 1 capsule (200 mg total) by mouth 3 (three) times a day if needed for cough. Do not crush or chew. 21 capsule 06/15/2024 ergocalciferol (VITAMIN D-2) 1,250 mcg (50,000 unit) capsule Take 1 capsule (50,000 Units total) by mouth 1 (one) time per week. 12 capsule 1 06/15/2024 documented in this encounter Progress Notes * Bell Barone MD - 06/15/2024 8:45 AM ESTAssociated Problem(s): Parkinson's disease (CMS/HCC) * Bell Barone MD - 06/15/2024 8:45 AM ESTAssociated Problem(s): Asthma * Bell Barone MD - 06/15/2024 8:45 AM ESTAssociated Problem(s): Depression * Bell Barone MD - 06/15/2024 8:45 AM ESTAssociated Problem(s): Migraine headache * Bell Barone MD - 06/15/2024 8:45 AM EST Images from the original note were not included. CHIEF COMPLAINT: Annual Exam IDENTIFIER: Alyssa Thomson is a 74 y.o. old female. HPI::Hypertension, bilateral knee arthritis, low back pain, Parkinson disease, osteopenia, asthma Patient is concerned about cough, was recently treated for URI still having lingering cough. Patient is scheduled for back injection at [facility] Following neurology for Parkinson, not on any treatment at this point. ROS: GENERAL: No malaise, significant weight loss or fever NECK: No lumps, goiter, pain or significant neck swelling RESPIRATORY: No cough, wheezing or shortness of breath CARDIOVASCULAR: No chest pain, leg swelling or palpitations GI: No abdominal discomfort, blood in stools or black stools PSYCH: No sleep disturbance, mood disorder or recent psychosocial stressors. PAST MEDICAL HISTORY: Patient Active Problem List Diagnosis Date Noted ??? Parkinson's disease (CMS/HCC) 06/15/2024 ??? Abdominal pain 03/09/2024 ??? AV block 09/25/2023 ??? Aneurysm of ascending aorta (CMS/HCC) 04/14/2023 ??? Palpitation 04/09/2023 ??? Tremor 08/26/2022 ??? Allergic rhinitis 01/28/2018 ??? Hemorrhoids 12/26/2017 ??? Asthma 08/11/2017 ??? Benign familial tremor 08/08/2017 ??? Chronic sinusitis 02/21/2017 ??? Renal colic 02/21/2017 ??? Venous insufficiency 02/21/2017 ??? Esophageal reflux 11/13/2016 ??? Neuropathic pain 08/23/2016 ??? Vitamin D deficiency 02/05/2016 ??? Anemia 10/18/2015 ??? Migraine headache 10/18/2015 ??? OA (osteoarthritis of spine) 10/18/2015 ??? Osteoarthritis of knee 09/04/2015 ??? Fibromyalgia 11/01/2014 ??? Decreased vision 09/08/2014 ??? Depression 09/08/2014 ??? Overactive bladder 09/08/2014 Past Surgical History: Procedure Laterality Date ??? BREAST LUMPECTOMY Right PROCEDURE: HISTORICAL BREAST LUMPECTOMY SOCIAL HISTORY: Social History Tobacco Use ??? Smoking status: Never ??? Smokeless tobacco: Never Substance Use Topics ??? Alcohol use: Never FAMILY HISTORY: Family History Problem Relation Name Age of Onset ??? Stroke Mother multiple CVA's and [place]; HTN; diabetes; CHF ??? Other (Other: MVA accident) Father ??? Other (Other: muscle tremor) Sister ??? Other (Other: muscle tremor) Brother ??? Breast cancer Aunt maternal ??? Breast cancer Father's side 1st cousin Family Status Relation Name Status ??? Mother ??? Father ??? Sister Alive ??? Brother Alive ??? Aunt maternal ??? Father's cinthya 1st cousin Alive ??? MGM ??? MGF ??? PGM ??? PGF No partnership data on file MEDICATIONS DISCONTINUED/REORDERED: Medications Discontinued During This Encounter Medication Reason ??? ergocalciferol (VITAMIN D-2) 1,250 mcg (50,000 unit) capsule Reorder ??? dextromethorphan-guaiFENesin (Tussin DM) 10-100 mg/5 mL liquid ACTIVE MEDICATIONS: Outpatient Medications Marked as Taking for the 06/15/24 encounter (Office Visit) with Bell Barone MD Medication Sig Dispense Refill ??? albuterol HFA (PROAIR HFA ; PROVENTIL HFA ; VENTOLIN HFA) 90 mcg/actuation inhaler INHALE 2 PUFFS INTO THE LUNGS EVERY 6 HOURS NEEDED FOR COUGH OR WHEEZING. ??? carboxymethylcellulose (REFRESH PLUS) 0.5 % ophthalmic solution 1 drop each eye twice a day ??? ergocalciferol (VITAMIN D-2) 1,250 mcg (50,000 unit) capsule Take 1 capsule (50,000 Units total) by mouth 1 (one) time per week. 12 capsule 1 ??? hydrocortisone (ANUSOL-HC) 2.5 % rectal cream Apply 1 Dose topically 2 times daily. ??? lidocaine 5 % cream Apply 1 Inch topically 2 times daily. ??? simethicone (MYLICON) 125 mg chewable tablet Take 1 Tablet by mouth every 6 hours as needed forFlatulence. ??? triamcinolone (KENALOG) 0.1 % cream APPLY TO AFFECTED AREA TWICE DAILY ??? UNABLE TO FIND Misc. Devices (Rollator Ultra-Light) Misc, 1 Each by Does not apply route daily. ??? UNABLE TO FIND Spacer/Aero-Holding Chambers (PROCARE SPACER/ADULT MASK) Device ??? UNABLE TO FIND Misc. Devices (3-IN-1 BEDSIDE TOILET) Misc, 1 Each by Does not apply route daily. ??? [DISCONTINUED] ergocalciferol (VITAMIN D-2) 1,250 mcg (50,000 unit) capsule TAKE 1 CAPSULE BY MOUTH ONCE A WEEK. ALLERGIES: Allergies Allergen Reactions ??? Amitriptyline ??? Amoxicillin-Pot Clavulanate ??? Azithromycin ??? Chlorhexidin-Isopropyl Alcohol ??? Ciprofloxacin ??? Lisinopril ??? Metoprolol ??? Mirabegron ??? Morphine ??? Other Seasonal allergies Amoxicillin-k Clavulanate-saccharin ??? Pentosan Polysulfate Sodium ??? Phenazopyridine ??? Promethazine ??? Simethicone ??? Sulfamethoxazole-Trimethoprim PHYSICAL EXAM: Visit Vitals BP 138/86 (BP Location: Left arm, Patient Position: Sitting, BP Cuff Size: Large adult) Pulse 88 Temp 36.7 ??C (98 ??F) (Temporal) Wt 83.5 kg (184 lb) SpO2 99% BMI 33.65 kg/m?? Smoking Status Never BSA 1.85 m?? APPEARANCE: Alert and in no acute distress NECK: Neck supple, no adenopathy, thyroid symmetric and of normal size HEART: RRR with normal S1 and S2, no murmurs, no gallops, no JVD appreciated LUNG: clear to auscultation ABDOMEN: Bowel sounds normoactive, no bruits, soft, non-tender, without organomegaly or palpable masses SKIN: Skin color, texture, turgor normal. No rashes or lesions. LABS/IMAGING: Office Visit on 05/12/2024 Component Date Value Ref Range Status ??? COVID-19/SARS-COV-2 Rapid POC 05/12/2024 Negative Negative Final ??? Internal Control Pass 05/12/2024 Yes Yes Final ??? Rapid Influenza A AGN POC 05/12/2024 Negative Negative Final ??? Rapid Influenza B AGN POC 05/12/2024 Negative Negative Final ??? Internal Control Pass 05/12/2024 Yes Yes Final ??? Rapid Strep A Screen POC 05/12/2024 Negative Negative Final ??? Internal Control Pass 05/12/2024 Yes Yes Final Appointment on 04/16/2024 Component Date Value Ref Range Status ??? TSH 04/16/2024 2.52 0.40 - 4.00 mcIU/mL Final ??? Sodium 04/16/2024 142 133 - 145 mmol/L Final ??? Potassium 04/16/2024 3.8 3.5 - 5.5 mmol/L Final ??? Chloride 04/16/2024 109 96 - 110 mmol/L Final ??? CO2 04/16/2024 26 21 - 32 mmol/L Final ??? Anion Gap 04/16/2024 7 3 - 11 Final ??? Glucose 04/16/2024 107 (H) 70 - 100 mg/dL Final ??? BUN 04/16/2024 20 5 - 25 mg/dL Final ??? Creatinine 04/16/2024 0.89 0.50 - 1.10 mg/dL Final ? ? eGFR 04/16/2024 69 >=60 mL/min/1.73m2 Final ??? BUN/Creatinine Ratio 04/16/2024 22.5 Final ??? Calcium 04/16/2024 9.5 8.5 - 10.5 mg/dL Final ??? AST (SGOT) 04/16/2024 19 10 - 42 unit/L Final ??? ALT (SGPT) 04/16/2024 20 10 - 60 unit/L Final ??? Alkaline Phosphatase 04/16/2024 68 42 - 121 unit/L Final ??? Total Protein 04/16/2024 7.8 6.0 - 8.0 g/dL Final ??? Albumin 04/16/2024 4.2 3.2 - 5.0 g/dL Final ??? Total Bilirubin 04/16/2024 0.3 0.0 - 1.4 mg/dL Final ??? WBC 04/16/2024 5.9 4.8 - 10.8 K/mcL Final ??? RBC 04/16/2024 4.50 3.80 - 4.80 M/mcL Final ??? Hemoglobin 04/16/2024 12.4 11.5 - 16.0 g/dL Final ??? Hematocrit 04/16/2024 39.7 35.0 - 47.0 % Final ??? MCV 04/16/2024 87.6 79.0 - 98.0 FL Final ??? MCH 04/16/2024 27.4 27.0 - 32.0 pcg Final ??? MCHC 04/16/2024 31.2 (L) 32.0 - 37.0 g/dL Final ??? RDW 04/16/2024 14.1 11.0 - 15.0 % Final ??? Platelets 04/16/2024 247 130 - 400 K/mcL Final ??? MPV 04/16/2024 11.4 (H) 7.0 - 11.0 FL Final ? ? NRBC 04/16/2024 0.0 <1.0 % Final ? ? NRBC Absolute 04/16/2024 0.00 <0.10 K/mcL Final ??? Neutrophils Relative 04/16/2024 62.1 % Final ??? Lymphocytes Relative 04/16/2024 25.3 % Final ??? Monocytes Relative 04/16/2024 8.1 % Final ??? Eosinophils Relative 04/16/2024 3.2 % Final ??? Basophils Relative 04/16/2024 1.0 % Final ??? Immature Granulocytes Relative 04/16/2024 0.3 % Final ??? Neutrophils Absolute 04/16/2024 3.65 1.50 - 7.00 K/mcL Final ??? Lymphocytes Absolute 04/16/2024 1.49 1.00 - 5.00 K/mcL Final ??? Monocytes Absolute 04/16/2024 0.48 0.20 - 1.00 K/mcL Final ??? Eosinophils Absolute 04/16/2024 0.19 0.00 - 0.50 K/mcL Final ??? Basophils Absolute 04/16/2024 0.06 0.00 - 0.20 K/mcL Final ??? Immature Granulocytes Absolute 04/16/2024 0.02 0.00 - 0.03 K/mcL Final Office Visit on 04/13/2024 Component Date Value Ref Range Status ??? Ventricular Rate ECG 04/13/2024 95 BPM Final ??? Atrial Rate 04/13/2024 97 BPM Final ??? P-R Interval 04/13/2024 290 ms Final ??? QRS Duration 04/13/2024 134 ms Final ??? Q-T Interval 04/13/2024 342 ms Final ??? QTc 04/13/2024 430 ms Final ??? R Power 04/13/2024 -15 degrees Final ??? T Power 04/13/2024 3 degrees Final ??? ECG Interpretation 04/13/2024 Final Value:Normal sinus rhythm with 1st degree A-V block Right bundle branch block Abnormal ECG When compared with ECG of 16-JUL-2022 01:02, No significant change was found Confirmed by TORIBIO CARLOS ([id number]) on 04/13/2024 4:34:00 PM Abstract on 03/09/2024 Component Date Value Ref Range Status ??? Medicare Annual Wellness Visit 08/15/2021 abstracted Final ??? Annual BMP Blood Test 12/29/2023 abstracted Final ??? LDL/HDL Ratio 12/29/2023 4 0 - 4 Final ??? Triglycerides 12/29/2023 125 0 - 150 mg/dL Final ??? Cholesterol 12/29/2023 204 (A) 0 - 200 mg/dL Final ? ? HDL 12/29/2023 57 >=40 mg/dL Final ??? LDL Cholesterol 12/29/2023 122 (A) 0 - 100 mg/dL Final ? ? Hemoglobin A1C 12/29/2023 6.3 <=6.5 % Final Medication and lab orders: No orders of the defined types were placed in this encounter. Other orders: None IMPRESSION: 1. Migraine without status migrainosus, not intractable, unspecified migraine type 2. Encounter for subsequent annual wellness visit (AWV) in Medicare patient 3. Parkinson's disease, unspecified whether dyskinesia present, unspecified whether manifestations fluctuate (CMS/HCC) 4. Mild intermittent asthma without complication 5. Depression, unspecified depression type PLAN: Hypertension--blood pressure under good control, not on any treatment at this point. Low-salt diet discussed. Familial tremor/Parkinson--following neurology Dr. Hooper. Osteoarthritis both knees-extra strength Tylenol as needed- Asthma--stable, continue inhalers Osteopenia--continue calcium with vitamin D Palpitations/ascending aortic aneurysm--evaluated by cardiology Dr. Roman Follow-up in 4 months or sooner as needed Bell Barone MD on 06/15/2024 at 11:54 AM EST Medicare Annual Wellness Visit Note Patient Name: Alyssa Thomson Date of : 1950 Race: honduran Ethnicity: Other , /a, or Chinese origin Date of Service: 06/15/2024 Alyssa is a 74 y.o. female presenting for Annual Exam History of Present Illness HPI Comprehensive Medical and Social History: Patient Active Problem List Diagnosis ??? Abdominal pain ??? Allergic rhinitis ??? Anemia ??? Aneurysm of ascending aorta (CMS/HCC) ??? Asthma ??? AV block ??? Benign familial tremor ??? Chronic sinusitis ??? Decreased vision ??? Depression ??? Esophageal reflux ??? Fibromyalgia ??? Hemorrhoids ??? Migraine headache ??? Neuropathic pain ??? OA (osteoarthritis of spine) ??? Osteoarthritis of knee ??? Overactive bladder ??? Palpitation ??? Renal colic ??? Tremor ??? Venous insufficiency ??? Vitamin D deficiency ??? Parkinson's disease (CMS/HCC) Allergies Allergen Reactions ??? Amitriptyline ??? Amoxicillin-Pot Clavulanate ??? Azithromycin ??? Chlorhexidin-Isopropyl Alcohol ??? Ciprofloxacin ??? Lisinopril ??? Metoprolol ??? Mirabegron ??? Morphine ??? Other Seasonal allergies Amoxicillin-k Clavulanate-saccharin ??? Pentosan Polysulfate Sodium ??? Phenazopyridine ??? Promethazine ??? Simethicone ??? Sulfamethoxazole-Trimethoprim Current Outpatient Medications Medication Sig Dispense Refill ??? albuterol HFA (PROAIR HFA ; PROVENTIL HFA ; VENTOLIN HFA) 90 mcg/actuation inhaler INHALE 2 PUFFS INTO THE LUNGS EVERY 6 HOURS NEEDED FOR COUGH OR WHEEZING. ??? carboxymethylcellulose (REFRESH PLUS) 0.5 % ophthalmic solution 1 drop each eye twice a day ??? ergocalciferol (VITAMIN D-2) 1,250 mcg (50,000 unit) capsule Take 1 capsule (50,000 Units total) by mouth 1 (one) time per week. 12 capsule 1 ??? hydrocortisone (ANUSOL-HC) 2.5 % rectal cream Apply 1 Dose topically 2 times daily. ??? lidocaine 5 % cream Apply 1 Inch topically 2 times daily. ??? simethicone (MYLICON) 125 mg chewable tablet Take 1 Tablet by mouth every 6 hours as needed forFlatulence. ??? triamcinolone (KENALOG) 0.1 % cream APPLY TO AFFECTED AREA TWICE DAILY ??? UNABLE TO FIND Misc. Devices (Rollator Ultra-Light) Misc, 1 Each by Does not apply route daily. ??? UNABLE TO FIND Spacer/Aero-Holding Chambers (PROCARE SPACER/ADULT MASK) Device ??? UNABLE TO FIND Misc. Devices (3-IN-1 BEDSIDE TOILET) Misc, 1 Each by Does not apply route daily. ??? benzonatate (TESSALON) 200 mg capsule Take 1 capsule (200 mg total) by mouth 3 (three) times a day if needed for cough. Do not crush or chew. 21 capsule 0 ??? calcium carbonate-vitamin D3 600 mg-5 mcg (200 unit) per tablet Take 1 Cap by mouth daily. (Patient not taking: Reported on 06/15/2024) ??? loratadine (CLARITIN) 10 mg tablet Take 1 Tablet by mouth daily as needed for Allergies. (Patient not taking: Reported on 06/15/2024) No current facility-administered medications for this visit. Past Medical History: Diagnosis Date ??? Abdominal pain DX:Abdominal pain ??? Allergic rhinitis 01/28/2018 DX:Allergic rhinitis ??? Anemia 10/18/2015 DX:Anemia ??? Asthma 08/11/2017 DX:Asthma ??? Benign familial tremor 08/08/2017 DX:Benign familial tremor ??? Chronic sinusitis 02/21/2017 DX:Chronic sinusitis ??? Decreased vision 09/08/2014 DX:Decreased vision ??? Depression 09/08/2014 DX:Depression ??? Edema 11/27/2016 DX:Edema ??? Esophageal reflux 11/13/2016 DX:Esophageal reflux ??? Fibromyalgia 11/01/2014 DX:Fibromyalgia ??? Hemorrhoids 12/26/2017 DX:Hemorrhoids ??? History of breast cancer 03/03/2018 DX:History of breast cancer; COMMENT: Right lumpectomy, XRT, Tamoxifen/Arimidex for 5 yrs ??? History of diverticulitis 03/03/2018 DX:History of diverticulitis ??? HTN (hypertension) 05/28/2017 DX:HTN (hypertension) ??? Leg edema 11/13/2016 DX:Leg edema ??? Migraine headache 10/18/2015 DX:Migraine headache ??? Neuropathic pain 08/23/2016 DX:Neuropathic pain ??? OA (osteoarthritis of spine) 10/18/2015 DX:OA (osteoarthritis of spine) ??? Osteoarthritis of knee 09/04/2015 DX:Osteoarthritis of knee ??? Overactive bladder 09/08/2014 DX:Overactive bladder ??? Renal colic 02/21/2017 DX:Renal colic ??? Venous insufficiency 02/21/2017 DX:Venous insufficiency ??? Vitamin D deficiency 02/05/2016 DX:Vitamin D deficiency Past Surgical History: Procedure Laterality Date ??? BREAST LUMPECTOMY Right PROCEDURE: HISTORICAL BREAST LUMPECTOMY Social History Socioeconomic History ??? Marital status: Spouse name: Not on file ??? Number of children: Not on file ??? Years of education: Not on file ??? Highest education level: Not on file Occupational History ??? Not on file Tobacco Use ??? Smoking status: Never ??? Smokeless tobacco: Never Substance and Sexual Activity ??? Alcohol use: Never ??? Drug use: Never ??? Sexual activity: Not on file Other Topics Concern ??? Not on file Social History Narrative ??? Not on file Family History Problem Relation Name Age of Onset ??? Stroke Mother multiple CVA's and [place]; HTN; diabetes; CHF ??? Other (Other: MVA accident) Father ??? Other (Other: muscle tremor) Sister ??? Other (Other: muscle tremor) Brother ??? Breast cancer Aunt maternal ??? Breast cancer Father's side 1st cousin Immunizations: Immunization History Administered Date(s) Administered ??? Influenza trivalent, 0.5mL (Fluad) 65yo and older 01/14/2019 ??? Pfizer SARS-CoV-2 COVID-19, mRNA, LNP-S, preservative free 06/10/2020, 07/01/2020, 05/16/2021 ??? Pneumococcal conjugate 13 valent (Prevnar 13, PCV13) 2mo and older 03/13/2015, 05/07/2016 ??? Pneumococcal conjugate 20 valent (Prevnar 20, PCV 20) 2mo and older 05/12/2024 Hospitalization in the last year: Has not been hospitalized in the past 12 months. Current Providers and Suppliers: Patient Care Team: Bell Barone MD as PCP - General (Internal Medicine) Toribio Carlos MD as Consulting Physician (Cardiology) Patient does not have/use current medical supplier Risk Assessments: Cognitive Function Assessment No cognitive concerns, No screenings indicated. Depression Screening (PHQ2/9): Depression Screening Over the last 2 weeks, how often have you been bothered by little interest or pleasure in doing things?: Not at all Over the last 2 weeks, how often have you been bothered by feeling down, depressed, or hopeless?: Not at all Depression Risk: 0 PHQ9 Full Set of Questions Over the last 2 weeks, how often have you been bothered by little interest or pleasure in doing things?: Not at all Over the last 2 weeks, how often have you been bothered by feeling down, depressed, or hopeless?: Not at all Depression Risk Score NEW: 0 Depression Plan : Screen was negative Anxiety Screening: Alcohol Screening: Substance Abuse Screening: Pain: Pain Medications: Patient does not take any opioid medications BMI: Body mass index is 33.65 kg/m??. The BMI is above average. The patient received dietary education and exercise education because they have an above normal BMI. Functional Ability and Level of Safety Review Health Status: In general, the patient reports health as: fair In general, patient reports life as: good Patient reports sleep pattern as: restless Have you seen a dentist in the last year?: No Activity of Daily Living (ADLs): Do you need help from others for your personal care such as eating, dressing, toileting, or gettingaround the house?: Yes Do you experience incontinence?: Yes Instrumental Activities of Daily Living (IADLs): Do you need help with using the telephone?: Yes Do you need help with shopping?: Yes Do you need help with food preparation?: Yes Do you need help with housekeeping?: Yes Do you need help with laundry?: Yes Do you need help handling finances?: Yes Do you drive?: No Do you manage your own medication?: No Physical Activity: Do you exercise for about 20 minutes or more three days a week?: Yes, sometimes Nutritional Assessment: Do you eat a balanced diet including daily serving of fruits, vegetables, and whole grains?: Yes, sometimes Social Influencer of Health (SIOH): Sexual Health: Have you been bothered by sexual problems: No Fall Risk: Have you fallen in the past year? no. Are you worried about falling? yes. . Hearing: No data recorded Vision Screening: Required for Medicare Initial Preventative Physical Exam (IPPE) No data recorded Review of Systems Review of Systems Objective BP 138/86 (BP Location: Left arm, Patient Position: Sitting, BP Cuff Size: Large adult) Pulse 88 Temp 36.7 ??C (98 ??F) (Temporal) Wt 83.5 kg (184 lb) BMI 33.65 kg/m?? SpO2: 99 % Physical Exam Assessment/Plan Patient presented today for an Subsequent Medicare Wellness Visit with management of chronic condition(s). Assessment & Plan Encounter for subsequent annual wellness visit (AWV) in Medicare patient Parkinson's disease, unspecified whether dyskinesia present, unspecified whether manifestations fluctuate ([facility]) Mild intermittent asthma without complication Depression, unspecified depression type Migraine without status migrainosus, not intractable, unspecified migraine type Advance Care Planning Discussion: Advance Care Planning was discussed. Alyssa reports that she does not have advance directives or surrogate decision maker. Patient has not identified their surrogate decision maker. During the visit we discussed: Available Advanced Directive forms discussed A total time of 16 minutes or greater was spent on Advance Care Planning today :No Fall Prevention Education Discussed: not rushing through tasks Health Maintenance Topic Date Due ??? DTaP,Tdap,and Td Vaccines (1 - Tdap) Never done ??? Zoster Vaccines (1 of 2) Never done ??? RSV Immunization Patients 60+ Years Old (1 - Risk 60-74 years 1-dose series) Never done ??? Colorectal Cancer Screening: Colonoscopy Never done ??? Depression Screening Never done ??? Hepatitis C Screening Never done ??? Osteoporosis Screening (Bone Density Screening) Never done ??? Social Influencers of Health Screening Never done ??? Medicare Annual Wellness Visit 08/15/2022 ??? Influenza Vaccine (1) 01/04/2024 ??? COVID-19 Vaccine ( season) 2024 ??? Hypertension/CHF/CAD Annual BMP Blood Test 04/16/2025 ??? Falls Risk Assessment 06/15/2025 ??? Breast Cancer Screening 11/30/2025 ??? Cholesterol Screening (Lipid Panel) 12/28/2028 ??? Pneumococcal Vaccine: 50+ Years Completed ??? HIB Vaccines Aged Out ??? Hepatitis B Vaccines Aged Out ??? IPV Vaccines Aged Out ??? Hepatitis A Vaccines Aged Out ??? MMR Vaccines Aged Out ??? Varicella Vaccines Aged Out ??? Meningococcal ACWY Vaccine Aged Out ??? Meningococcal B Vacine Aged Out ??? HPV Vaccines Aged Out ??? RSV Immunization Patients Under 20 months Aged Out Bell Barone MD [facility] [place] [address] [facility] [address] [facility] [id number] Dept: [phone] Dept documented in this encounter Plan of Treatment Upcoming Encounters Date Type Department Care Team (Late st Contact Info) Description 07/27/2024 11:00 AM EDT Ancillary Procedure [facility] [address] [place] [phone] 08/04/2024 10:50 AM EDT Office Visit [facility] [address] [place] [phone] Abel-Toribio Salomon MD [address] [place] [address] [address] [place] [address] 10/28/2024 11:15 AM EDT Office Visit Internal Medicine - [place] [address] [facility] [address] [place] [phone] Bell Barone MD [address] [phone] documented as of this encounter Visit Diagnoses Diagnosis Migraine without status migrainosus, not intractable, unspecified migraine type- Primary Encounter for subsequent annual wellness visit (AWV) in Medicare patient Parkinson's disease, unspecified whether dyskinesia present, unspecified whether manifestations fluctuate ([facility]) Mild intermittent asthma without complication Depression, unspecified depression type documented in this encounter Discontinued Medications Medication Sig Discontinue Reason Start Date End Da te ergocalciferol (VITAMIN D-2) 1,250 mcg (50,000 unit) capsule TAKE 1 CAPSULE BY MOUTH ONCE A WEEK. Reorder 11/18/2023 06/15/2024 dextromethorphan-guaiFEN esin (Allan DM) 10-100 mg/5 mL liquidIndications:Acute cough Take 5 mL by mouth every 4 (four) hours if needed for cough. 05/12/2024 06/15/2024 documented as of this encounter Additional Health Concerns Assessment Noted Time PHQ-9 Depression Total Score: 0 06/15/19 25 8:59 AM EST A fall risk assessment has been complete d for the patient 06/15/2024 8:52 AM EST documented as of this encounter Care Teams Director Personal Relationship Specialty Start Date End Date Bell Barone MD [address] [phone] PCP - General Internal Medicine 03/29/24 documented as of this encounter
--- OUTSIDE RECORDS SUMMARY | 2024-07-01 12:47 | XMS_ITS | Data Portability ---
Author Organization [facility], [facility] Address [address] [place] [address] Assessment Encounter Date Assessment Date Assessment LastModified by Organization Details LastModified Time 08/11/2023 08/11/2023 Patient is given an extension on her physical therapy note she would like to recheck with us in 3 months. Follow-up arrangements made. Questions answered on her behalf. We rediscussed the possibility of epidurals and/or surgical intervention which we will continue to defer at this time. [email or web address] Not available 08/11/2023 13:07:21 Plan of Treatment Reminders Order Date Submit Date Provider Last Modified By Organization Details Last Modified Time Details Appointments None recorded. Lab None recorded. Referral physical therapist referral - Evaluate & RxLumbar Stabiliza tion Program 2023 024 [email or web address] Not available 12:34:12 Procedures None recorded. Surgeries None recorded. Imaging None recorded. Medication Orders None recorded. Patient TargetsNo targets recorded. Patient InstructionsNo instructions recorded. Reason for Referral Physical Therapist Referral for Chronic low back pain L4/5 Stenosis & Spondylolisthesis Evaluate & RxLumbar Stabilization Program Referring Physician: Monique Lacy, Orthopedic Surgery, [id number] Encounter Date: 08/11/2023 Results Created Date Observation Date Name Description Value Unit Range Abnormal Flag Note LastModifiedBy Organization Detail LastModifiedTime 01/02/20 24 06/15/2022 imagi ng/di agnos tic resul t No observ ation record ed. [email or web address] Not Available 12/05 23:36:36 01/02/20 24 01/09/2023 imagi ng/di agnos tic resul t No observ ation record ed. [email or web address] Not Available 12/05 23:36:37 Result Notes None recorded. Problems Name Problem SNOMED Code Status Onset Date Resolution Date Notes Provider Name and Address Organization Details Recorded Time No complaints 587563433 Active Status : 'A'; Not Available [facility] 4 09:12:24 Chronic low back pain 734547833 Active 2023 JARETT mccarthy, [facility] 4 12:08:26 Lumbar spondyloli sthesis 6955506735826 02 Active 2023 Monique Lacy PA-C [address], [facility] [place], [phone] , [facility] 4 13:06:47 Problem Notes None recorded. Procedures Surgical History None recorded. Imaging Results Imaging Date Name Status LastModified by Organiz ation Details LastModified Time 06/15/2022 imaging/diag nostic result completed Information not available 01/02/2024 23:36:36 01/09/2023 imaging/diag nostic result completed Information not available 01/02/2024 23:36:37 Procedure Notes None recorded. Medical Equipment None Reported. Allergies Allergen ID Allergen Name Allergen Category Reaction Reaction Severity Criticality Documentation Date Start Date Code Code System Note Provider Name and Address Organization Details Recorded Time 925668 lisinopri l medicatio n Not available Not available Not available 08/11/2023 27510 RxNorm JARETT mccarthy [facility] 4 11:40:38 647642 Elmiron medicatio n Not available Not available Not available 08/11/2023 90275 3 RxNorm JARETT mccarthy [facility] 4 11:40:51 797868 Cipro medicatio n Not available Not available Not available 08/11/202360049 3 RxNorm JARETT mccarthy [facility] 4 11:40:58 546365 amitripty line medicatio n Not available Not available Not available 08/11/2023 704 RxNorm JARETT mccarthy [facility] 4 11:41:08 129742 morphine medicatio n Not available Not available Not available 08/11/2023 7052 RxNorm JARETT mcacrthy [place] - [place] [facility] 4 11:41:14 Medications Name Sig Start Date Stop Date Status Note LastModified by Organization Details LastModified Time ra lubricant eye drops 0.5 % soln active Not Available Not Available Not Available azithromycin 250 mg tablet active Not Available Not Availabl e Not Available clotrimazole-b etamethasone 1 %-0.05 % lotion active Not Available Not Available Not Available triamcinolone acetonide 0.1 % topical cream active Not Available Not Available Not Available hydrocortisone 2.5 % topical cream with perineal applicator active Not Available Not Available N ot Available pseudoephedrin e-guaifenesin ER 80-700 mg tablet,extende d release Percocet 5-325MG Tablet 1-2 Q 4-6 Hours Prn 2008 active Statu s: 'Curr ent'; Not Available Not Available Not Available simethicone 125 mg chewable tablet active Not Available Not Available Not Available hydrocortisone 2.5 % topical cream active Not Available Not Available Not Available mupirocin 2 % topical ointment active Not Available Not Available Not Available albuterol sulfate HFA 90 mcg/actuation aerosol inhaler active Not Available Not Available Not Available Vitamin D2 1,250 mcg (50,000 unit) capsule active Not Available Not Available Not Available loratadine 10 mg tablet active Not Available Not Available No t Available amoxicillin 875 mg-potassium clavulanate 125 mg tablet active Not Available Not Availabl e Not Available neomycin 3.5 mg/g-polymyxin B 10,000 unit/g-dexamet h 0.1 % eye oint active Not Available Not Available Not Available Lubricant Eye Drops 0.5 % active Not Available Not Available Not Available Vitals Date Recorded Body height Body mass index (BMI) Body weight Provider Name and Address Organization Details Last Updated DateTime 08/11/2023 157.48 cm 35.1 kg/m2 27626.74 g JARETT WINKLER [place] - [place] [facility] 08/11/2023 11:40:17 Social History None recorded. Functional Status None recorded. Mental Status None recorded. Family History Nothing Reported. Medical History No medical history recorded. Gynecological HistoryNo gynecological history recorded. Obstetrics History GPAL:G 0 P 0 0 0 0 Past Encounters Encounter ID Performer Location Encounter Start Date Encounter Closed Date Diagnosis/Indication Diagnosis SNOMED-CT Code Diagnosis ICD10 Code Diagnosis Note [id number] PRINCE Leary [address] [place] [place] [address] 08/11/2023 11:15:34 09/04/2023 13:25:11 Chronic low back pain 734045381 M54.50 Lumbar spondylolisthesis 9753444336 49253 M43.16 Health Concerns Section Related Observation LastModified by Organization Detai ls LastModified Time None Recorded Concern Status LastModified by Organization Details LastModified Time None Recorded Advance Directives Directive None Recorded Payers Encounter Date Sequence Insurance Name Policy Number Policy Karimi Covered Member ID Karimi Member ID Guarantor Name 08/11/2023 1 [facility] S[facility] (MEDICARE REPLACEMENT/ ADVANTAGE - HMO) Alyssa Alix [id number] Alyssa Thomson Notes Date Note Type Note Provider Name and Address Organization Details Recorded Time 08/11/2023 text/html Patient here today 73-year-old female in follow-up of low back pain. She attended 4 visits of physical therapy which she tells me helped some. 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 She has been reluctant to consider injections or anything more. She continues to be limited in her walking and requires a walker to ambulate. She is here with her daughter today. Interview conducted through the use of the recruitment assistant today. She still tells me that she is not interested in going forth with more aggressive treatment and is requesting an extension on her physical therapy note today. Monique Lacy PA-C [address] [address], [place], [address], [facility] - [place] [facility] 08/11/2023 13:07:36 OBGyn Episode No OBEpisode recorded.
== END 2024-07-01 11:13 | disposition home or self-care (01) ==
PROVIDERS: PCP Internal Medicine; Visit Provider Psychiatry & Neurology Neurology
DX: G25.0 Essential tremor (principal)
CPT/HCPCS: 99214

== ENCOUNTER → 2024-07-01 10:45 | Outpatient (BNVA) | payer OTHER, SELFPAY | PROVIDERS: PCP Internal Medicine; Visit Provider Psychiatry & Neurology Neurology | DX: G25.0 Essential tremor (principal) | CPT/HCPCS: 99212 ==